=== PATIENT | male | born 1960 | race Caucasian/White ===

== ENCOUNTER 2019-07-21 10:04 | Emergency (ER) | payer OTHER, SELFPAY ==
[2019-07-21 10:05] VITALS: BP 127/74; PULSE 83; RESP 16; TEMP 36.7; O2SAT 99; BMI 29.8
--- NOTE | 2019-07-21 10:24 | RAD_ITS ---
STUDY: X-RAY - LEFT ANKLE REASON FOR EXAM: Male, 59 years old. Pain and swelling following recent injury. TECHNIQUE: 3 view(s) of the ankle. COMPARISON: None. FINDINGS: Normal visualized distal tibia and fibula. Normal medial and lateral malleoli. Normal tibiotalar articulation and ankle mortise. Normal visualized talus and calcaneus. The visualized subtalar, talonavicular, calcaneocuboid and tarsal articulations are normal. Diffuse soft tissue swelling worse overlying the lateral malleolus. RAD/Ankle min 3 Views IMPRESSION: Diffuse soft tissue swelling. Electronically Signed: Savage Chavez, at 11:03 EST , Service support ,
--- NOTE | 2019-07-21 10:25 | ED.VIS.GEN ---
History of Present Illness Chief Complaint: Lower Extremity Injury Informant: Patient Onset: Weeks - 1 Context: Sudden Onset Timing: Continuous Quality: achy, swollen Location: left ankle Current Severity: Moderate Maximum Severity: Moderate Worsened by: walking, moving Relieved by: remaining still Associated Symptoms: edema for months-years BLE, prior to injury Narrative: Patient is here for his left ankle injury that he has not had evaluated since he stepped off of a cement step and accidentally rolled his ankle while wearing boots. He also states he is an alcoholic, gets withdrawal symptoms when he does not drink, and has not seen a doctor for decades and is concerned that he has been getting edema of his legs before the injury occurred. He denies bleeding from anywhere, hemorrhoids, hematemesis, abdominal distention/swelling, confusion. Past Medical History - Allergies and Home Meds Allergies/Adverse Reactions: Allergies No Known Allergies Allergy (Verified 07/21/19 10:04) Primary Care Physician: NOT,DEFINED [NON-STAFF] - Review of Systems General: Denies: Chills, Fever, Sweats Eyes: Denies: Visual changes - bilaterally, Diplopia ENT: Denies: Rhinorrhea, Sore throat Cardiovascular: Denies: Chest pain, Palpitations Respiratory: Denies: Dyspnea, Cough, Dyspnea on exertion Gastrointestinal: Denies: Abdominal pain, Nausea, Vomiting, Diarrhea, Melena, Hematochezia Genitourinary: Denies: Dysuria, Hematuria, Frequency Musculoskeletal: Reports: Swelling, Extremity Pain. Denies: Neck pain, Back pain Skin: Denies: Rash, Wounds Neurological: Reports: Numbness - left toes, since injury. Denies: Headache, Weakness Physical Exam Vital Signs/Narrative: Vital Signs Temp Pulse Resp BP Pulse Ox 07/21/19 10:05 98.1 F 83 16 127/74 H 99 Inital Vital Signs reviewed: Yes General: Well nourished, Well developed, No Acute Distress Head: Normocephalic, Atraumatic Eyes: Perrl, EOMI. Negative for: Scleral icterus ENT: Moist mucous membranes, No rhinorrhea Neck: Supple, Nontender Extremities: Tenderness - left lateral malleolus and distal 6-10cm fibula shaft; no deformity. Limited range of motion left ankle. Nontender medial malleolus and base of fifth metatarsal and midfoot and proximal fibula. Nontender toes. Too much edema to palpate pulse. Brisk cap refill toes., Edema - trace RLE; 2+ left ankle and throughout foot. Negative for: Calf Tenderness Skin: Normal color, No rash, Trauma - Ecchymosis lateral left ankle and into the hindfoot, skin intact. Neurological: Alert, Oriented x3, Cranial nerves II-XII grossly intact, Normal Strength, Parasthesia - Left forefoot, - - Able to walk, antalgic with regards to left lower extremity Psychological: Normal affect, Normal Mood Diagnostic/Tx/Re-eval Impressions Ankle X-Ray 07/21/19 10:24 IMPRESSION: Diffuse soft tissue swelling. Electronically Signed: Savage Waldronswapna, at 11:03 EST , Service support , 07/21/19 10:24 Ankle min 3 Views [RAD] Stat Laboratory Results 07/21/19 07/21/19 07/21/19 10:56 10:56 10:56 WBC 5.4 RBC 4.41 L Hgb 14.4 Hct 44.7 MCV 101.4 H MCH 32.7 H MCHC 32.2 RDW Std Deviation 51.7 H RDW Coeff of [place] 13.8 Plt Count 333 MPV 9.1 Immature Gran % (Auto) 0.400 Neut % (Auto) 48.0 Lymph % (Auto) 36.7 [place] % (Auto) 9.9 Eos % (Auto) 3.7 Baso % (Auto) 1.3 H Absolute Neuts (auto) 2.6 Absolute Lymphs (auto) 1.97 Nucleated RBC % 0 PT 12.4 INR 0.9 Sodium 143 Potassium 4.0 Chloride 109 H Carbon Dioxide 27.0 Anion Gap 7 BUN 5 L Creatinine 0.69 L Estim Creat Clear Calc 106.59 Est GFR (MDRD) Af Amer 153 Est GFR (MDRD) Non-Af 126 BUN/Creatinine Ratio 7.3 L Glucose 87 Calcium 8.9 Total Bilirubin 0.30 AST 117 H ALT 78 H Alkaline Phosphatase 115 Total Protein 7.9 Albumin 3.8 Globulin 4.1 Albumin/Globulin Ratio 0.9 - Medical Decision Making X-ray shows no fracture, more consistent with a sprain. Patient wanted blood work done given the edema and the fact that he has not seen a doctor in decades. This all turned out pretty unremarkable except a very slight elevations of AST and ALT likely to his chronic alcohol use, but no signs of hyperbilirubinemia or coagulopathy to indicate cirrhosis. His protein levels are fairly normal and so is his renal function. Given a doctor to follow-up with and advised limiting salt intake for now. Also given an Aircast and advised to elevate and ice his ankle. ED Disposition - Plan for ED Patient: Disposition: Home or Assisted Living Diagnosis: Bilateral lower extremity edema, Chronic alcohol abuse, Left ankle sprain Instructions: Sprain, Ankle, with X-Ray, ED Peripheral Edema, Bilateral Referrals: Johanna Weston MD [STAFF PHYSICIAN] - 1-2 Weeks
[2019-07-21 11:07] LABS: Absolute Lymphocyte Count 1.97 X10^3/uL (0.83-4.51); Absolute Neutrophil Count 2.6 X10^3/uL (2.0-7.7); Basophil# 0.07 X10^3/uL; Basophil% 1.3 % (0-1); Eosinophils% 3.7 % (0-5); Hematocrit 44.7 % (40-54); Hemoglobin 14.4 g/dL (13.0-16.5); Lymphocyte # 1.97 X10^3/ul (4.0); Lymphocyte % 36.7 % (19-41); Mean Corp Hgb Conc 32.2 g/dL (32-36); Mean Corpuscular Hgb 32.7 pg (27.0-32.0); Mean Corpuscular Volume 101.4 fL (80-94); Mean Platelet Vol. 9.1 fl (6.2-12.0); Monocyte# 0.53 X10^3/uL; Monocyte% 9.9 % (0-10); NRBC Flagged by Analyzer 0 % (0-5); Neutrophil # 2.58 X10^3/uL (2.7-7.7); Platelet Count 333 K/mm3 (150-450); RBC Distribution Width CV 13.8 % (11.6-14.6); RBC Distribution Width SD 51.7 fl (35.1-43.9); Red Blood Count 4.41 M/mm3 (4.6-6.2); White Blood Count 5.4 K/mm3 (4.4-11.0)
[2019-07-21 11:19] LABS: ALB/GLOB Ratio 0.9 RATIO (0.9-2.4); AST(SGOT) 117 U/L (15-37); Alanine Aminotransfer ALT/SGPT 78 U/L (16-61); Albumin, Serum 3.8 g/dL (3.2-5.0); Alkaline Phosphatase 115 U/L (45-117); Anion Gap 7 (5-15); BUN 5 mg/dL (7-18); BUN/Creat Ratio 7.3 RATIO (10-20); Calcium,Total 8.9 mg/dL (8.5-10.1); Chloride 109 mmol/L (98-107); Creatinine, Serum 0.69 mg/dL (0.70-1.30); EST Glomerular Filtration Rate 126 mL/min (>60); Est Glom Filt Rate - Afr Amer 153 mL/min (>60); Estimated Creatinine Clearance 106.59 ml/min; Globulin 4.1 g/dL (2.2-4.2); Glucose 87 mg/dL (74-106); Protein, Total 7.9 g/dL (6.4-8.2); Sodium Level 143 mmol/L (136-145)
[2019-07-21 11:47] LABS: International Normalized Ratio 0.9; Prothrombin Time (Protime)PT. 12.4 SECONDS (11.7-14.9)
[2019-07-21 12:47] VITALS: BP 129/85; PULSE 90; RESP 17
== END 2019-07-21 12:54 | disposition home or self-care (01) ==
PROVIDERS: Emergency Provider Emergency Medicine
DX: R60.0 Localized edema (principal); F10.20 Alcohol dependence, uncomplicated; S93.402A Sprain of unspecified ligament of left ankle, initial encounter; X50.1XXA Overexertion from prolonged static or awkward postures, initial encounter; Y93.9 Activity, unspecified; Y92.9 Unspecified place or not applicable; Y99.9 Unspecified external cause status
CPT/HCPCS: 73610; 80053; 85025; 85610; 99283; A4216

== ENCOUNTER → 2020-11-17 13:26 | Outpatient (CLI) | payer OTHER, SELFPAY ==
[2020-11-17 14:53] LABS: Absolute Lymphocyte Count 1.49 X10^3/uL (0.83-4.51); Absolute Neutrophil Count 2.6 X10^3/uL (2.0-7.7); Basophil# 0.07 X10^3/uL; Basophil% 1.4 % (0-1); Eosinophil# 0.32 X10^3/uL; Eosinophils% 6.2 % (0-5); Hematocrit 43.2 % (40-54); Hemoglobin 14.5 g/dL (13.0-16.5); Lymphocyte # 1.49 X10^3/ul (4.0); Lymphocyte % 28.8 % (19-41); Mean Corp Hgb Conc 33.6 g/dL (32-36); Mean Corpuscular Hgb 33.7 pg (27.0-32.0); Mean Corpuscular Volume 100.5 fL (80-94); Mean Platelet Vol. 10.2 fl (6.2-12.0); Monocyte# 0.68 X10^3/uL; Monocyte% 13.2 % (0-10); NRBC Flagged by Analyzer 0 % (0-5); Neutrophil # 2.58 X10^3/uL (2.7-7.7); Neutrophil % 49.8 % (47-70); Platelet Count 278 K/mm3 (150-450); RBC Distribution Width CV 13.2 % (11.6-14.6); RBC Distribution Width SD 49.4 fl (35.1-43.9); White Blood Count 5.2 K/mm3 (4.4-11.0)
[2020-11-17 15:04] LABS: AST(SGOT) 276 U/L (15-37); Alanine Aminotransfer ALT/SGPT 146 U/L (16-61); Alkaline Phosphatase 166 U/L (45-117); Anion Gap 11 (5-15); BUN 3 mg/dL (7-18); BUN/Creat Ratio 3.7 RATIO (10-20); Bilirubin, Direct 0.33 mg/dL (0.00-0.30); Calcium,Total 9.3 mg/dL (8.5-10.1); Chloride 99 mmol/L (98-107); EST Glomerular Filtration Rate 105 mL/min (>60); Est Glom Filt Rate - Afr Amer 127 mL/min (>60); Glucose 80 mg/dL (74-106); Potassium 3.5 mmol/L (3.5-5.1); Sodium Level 137 mmol/L (136-145)
[2020-11-17 15:43] LABS: Hepatitis B Surface Antibody Non-Reactive; Hepatitis B Surface Antigen Non-Reactive (Nonreactive); Hepatitis C Antibody Non-Reactive (Nonreactive)
[2020-11-21 20:07] LABS: QNTFERON TB Mitogen Value > 10.00 IU/mL (.); QNTFERON TB Nil Value 0.56 IU/mL (.); QNTFERON TB1+ Ag Value 0.25 IU/mL (.); QNTFERON TB2+ Ag Value 0.24 IU/mL (.)
[2020-11-21 20:43] LABS: Hepatitis B Core Ab Total Negative (Negative); QNTIFERON TB Positive Criteria Negative (Negative)
== END ==
LOC: MTLAB 13:28
PROVIDERS: Referring Provider Dermatology; Visit Provider Dermatology
DX: L40.0 Psoriasis vulgaris (principal); Z79.899 Other long term (current) drug therapy
CPT/HCPCS: 36415; 80048; 80076; 85025; 86480; 86704; 86706; 86803; 87340